=== PATIENT | male | born 1970 | race Hispanic/Latino ===

== ENCOUNTER → 2024-08-15 | Day surgery (SDC) | payer BC ==
[~2024-08-15] MED LIST: ATORVASTATIN CA20 MG PO; FENTANYL CITRATE/PF 100MCG/2 ML INJ ONE; FEROSUL325 MG PO; GLUCAGON FOR INJ 1 MG VIAL ONE; LACTATED RINGER'S 1,000 ML ONE; LIDOCAINE HCL 2% LOCAL INJ 5 ML SDV VIAL INJ ONE; MIDAZOLAM HCL 2 MG/2 ML VIAL ONE; MULTI-VITAMIN1 EACH PO; PROPOFOL IV EMULSION 10 MG/ML 20 ML VIAL ONE; SAW PALMETTO450 MG
[2024-08-15 13:30] VITALS: BP 118/72; PULSE 70; RESP 16; O2SAT 98
== END | disposition home or self-care (01) ==
LOC: OR 09:27
PROVIDERS: ATTEND Internal Medicine Gastroenterology
DX: D64.9 Anemia, unspecified (principal); D12.4 Benign neoplasm of descending colon; D12.3 Benign neoplasm of transverse colon; K29.50 Unspecified chronic gastritis without bleeding; K31.89 Other diseases of stomach and duodenum; K22.89 Other specified disease of esophagus; K57.30 Diverticulosis of large intestine without perforation or abscess without bleeding; K44.9 Diaphragmatic hernia without obstruction or gangrene; K64.8 Other hemorrhoids; R73.03 Prediabetes; E78.5 Hyperlipidemia, unspecified; R03.0 Elevated blood-pressure reading, without diagnosis of hypertension; Z01.810 Encounter for preprocedural cardiovascular examination; Z79.899 Other long term (current) drug therapy
CPT/HCPCS: 43239; 45384; 93005; J1610; J2003; J2250; J2704; J3010; J7121